=== PATIENT | female | born 1950 | race Caucasian/White ===

== ENCOUNTER → 2023-04-07 12:13 | Outpatient (REF) | payer MEDICARE, OTHER, SELFPAY | LOC: REG 12:13 | PROVIDERS: ATTENDING PHYSICIAN Emergency Medicine; FAMILY PHYSICIAN Family Medicine | DX: R19.7 Diarrhea, unspecified (principal) | CPT/HCPCS: 87045; 87046; 87324; 87328; 87329; 87427; 87449 ==

== ENCOUNTER 2023-04-28 06:09 | Emergency (ER) | payer MEDICARE, OTHER, SELFPAY ==
[2023-04-28 06:11] VITALS: BP 144/92
[2023-04-28 06:32] VITALS: BP 146/89
[2023-04-28 06:48] LABS: % Basophils 1.2 % (0-2); % Eosinophils 3.4 % (0-6); % Immature Granulocytes 0.2 % (0-0.5); % Lymphocytes 30.2 % (20.5-51.1); % Monocytes 11.1 % (1.7-9.3); % Neutrophils 53.9 % (42.2-75.2); Absolute Basophils 0.1 10^3/uL (0-0.2); Absolute Eosinophils 0.2 10^3/uL (0-0.7); Absolute Lymphocytes 1.5 10^3/uL (1.2-3.4); Absolute Monocytes 0.6 10^3/uL (0.1-0.6); Absolute Neutrophils 2.7 10^3/uL (1.4-6.5); Hematocrit 37.5 % (37.0-47.0); Hemoglobin 13.5 g/dL (12.0-16.0); Mean Corpuscular Hgb 31.7 pg (27.0-31.0); Mean Platelet Volume 9.4 fL (7.4-10.4); Nucleated Red Blood Cells % 0 %; Platelet Count 271 10^3/uL (130-400); Red Blood Cell Count 4.26 10^6/uL (4.20-5.40); Red Cell Dist. Width 12.4 % (11.5-14.5); White Blood Cell Count 4.9 10^3/uL (4.8-10.8)
[2023-04-28 06:53] VITALS: BMI 20.3
[2023-04-28 07:00] VITALS: BP 148/72
[2023-04-28 07:04] LABS: ALT (SGPT) 19 U/L (0-35); AST (SGOT) 27 U/L (14-36); Albumin 4.4 g/dl (3.5-5.0); Alkaline Phosphatase 66 U/L (38-126); Blood Urea Nitrogen 12 mg/dl (7-17); Calcium 10.3 mg/dl (8.4-10.2); Carbon Dioxide 27 mmol/L (22-30); Chloride 99 mmol/L (98-107); Estimated Creatinine Clearance 72 ml/min; Glucose 100 mg/dl (70-99); Potassium 3.7 mmol/L (3.5-5.1); Sodium 135 mmol/L (135-145); Total Bilirubin 0.6 mg/dl (0.2-1.3); Total Protein 7.1 g/dl (6.3-8.2); eGFR > 60.00
[2023-04-28 07:13] LABS: Troponin I < 0.012 ng/ml
--- NOTE | 2023-04-28 07:18 | ED.GENMED ---
History of Present Illness
General
Chief Complaint: Chest Pain
Source: patient
Exam Limitations: none
Time Seen by Provider: 04/28/23 06:17
Travel History
Have you had any contact with someone who has COVID-19?: No
Do you have any symptoms of coronavirus? Fever > 100 degrees, chills, cough, shortness of breath, sore throat, loss of taste or smell, muscle aches, or headache?: No
History of Present Illness
History of Present Illness:
72-year-old female who presents with discomfort to the area under the right breast radiate toward the back. Patient states started probably 2 days ago. She does admit she recent has been dealing with some diarrhea and GI issues. After eating 2
days ago and had some upset stomach. She had taken some [id number] medications. Patient states that she noticed the discomfort through yesterday and today decided to come in sting. She is unable to describe what may make it worse. She
states that she also lifted a [place] tree to take it downstairs and wondered if the pain was related. She states she has injured her rib in the past and normally hurts to breathe and this does not hurt to breathe. There is no pleuritic pain.
There is no pain with movement. She is unable to assess whether there is any worsening discomfort with eating but nothing that she is aware of. No fevers. No vomiting. No rash. No leg swelling. No hemoptysis. She walked 9 miles the other day
and had no pain.
Past History
Past History
ED Past Medical History: HTN and Other (Anxiety)
ED Past Surgical History: Gynecological
Social History
Tobacco: Former smoker
Alcohol: Occasional
Personal: Other ()
Living: with family
Employment: Employed
Phy Exam
Physical Exam
Physical Exam:
CONSTITUTIONAL Patient alert and oriented to person, place and time. Well-appearing. Vital signs reviewed.
HEAD atraumatic, normocephalic.
EYES eyelids normal to inspection, Pupils equally round and reactive to light, Extraocular muscles intact, Conjunctiva normal, Sclera normal.
NECK normal range of motion, Trachea midline, no jugular venous distention.
RESPIRATORY CHEST No respiratory distress noted, Chest expansion equal, Bilateral breath sounds clear. No chest wall tenderness. No rash
CARDIOVASCULAR regular rate and rhythm, Heart sounds normal.
ABDOMEN abdomen nontender, Bowel sounds normal. No distention.
BACK normal inspection, no obvious deformities
UPPER EXTREMITY range of motion normal, Motor strength normal, no cyanosis, no edema.
LOWER EXTREMITY range of motion normal, Motor strength normal, no cyanosis, no edema. No palpable cords.
NEURO Speech normal, No focal motor deficits, Byron coma scale 15, Memory normal, Cranial Nerves intact to screening exam.
SKIN skin warm, dry, and normal in color.
PSYCHIATRIC patient oriented to person place and time, Normal affect.
Scores
Heart Score for Chest Pain Patients
STEMI patient?: Not applicable
Course
Orders/Labs/Results
Orders:
Orders
04/28/23 06:14
Electrocardiogram (*1) Urgent
Reason for Study: Chest Pain
EKG- Treatment ONCE
04/28/23 06:30
CMP [Comprehensive Metabolic Panel] Urgent
Complete Blood Count/With Diff Urgent
Troponin I Urgent
04/28/23 07:17
CR Chest - 2 Views Urgent
Comment:
Reason For Exam: R cp
04/28/23 09:12
Troponin I Stat
Abnormal Lab Results
04/28/23
06:30
MCH 31.7 H pg
(27.0-31.0)
Monocytes % 11.1 H %
(1.7-9.3)
Glucose 100 H mg/dl
(70-99)
Calcium 10.3 H mg/dl
(8.4-10.2)
04/28/23 06:30
04/28/23 06:30
Vital Signs
Initial and Last Documented VS:
Initial Vital Signs
Temp Pulse Resp BP Pulse Ox
97.6 F 98 22 144/92 100
04/28/23 06:11 04/28/23 06:11 04/28/23 06:11 04/28/23 06:11 04/28/23 06:11
Last Documented Vital Signs
Temp Pulse Resp BP Pulse Ox
97.6 F 72 15 140/73 96
04/28/23 06:11 04/28/23 10:30 04/28/23 10:30 04/28/23 10:00 04/28/23 10:30
MDM/Problems Addressed
MDM/Problems Addressed:
Chest pain
*Radiology
Radiology exam reviewed: radiology read reviewed and all reviewed NAD by ED Provider
*Pulse Oximetry
Patient hypoxic: no
*EKG
Interpreted by ED Provider?: Yes
Interpretation: normal
Rate: normal
Rhythm: sinus
[place]: left axis deviation
QRS Pattern: right bundle branch block
Ischemia: non-specific ST changes
*Director [employer] Interpretation
Rate: normal
Interpretation: normal
Rhythm: sinus
*Critical Care Note
Total Time (30-74mins, 75-104mins- exclusive of procedures): Not Applicable
Data Reviewed
Review of Other/Old Records Reveals: Other (Echocardiogram reviewed from November 2020, ejection fraction 60 to 65% with history of right bundle branch block)
Source: patient
Further Testing Considered But Not Given:
considered DDIMER but no risks, no sx's/signs of pe/
Patient Management
Escalation/DeEscalation of care consider admission/obs:
Symptoms are mild and right-sided. Abdomen is benign. Could question GI etiology. LFTs and white count normal. No abdominal tenderness. Troponin x 2 negative. She appears well. Chest x-ray unremarkable. Outpatient PCP follow-up
ED Attending Note
-
Portions of this chart may have been created with voice recognition software.� Occasional wrong word or��sound alike� substitutions may have occurred due to the inherent limitations of voice recognition software.
Discharge Plan
Departure
Patient Disposition: Home (Routine Discharge)
Date of Disposition: 04/28/23
Time of Disposition: 10:26
Patient with high blood pressure during this ER visit?: Yes
Discharge Problem:
Atypical chest pain
Instructions: Chest Pain PCP Follow Up
Prescriptions:
No Action
multivitamin 1 EACH capsule
1 ea PO DAILY
docosahexaenoic acid-epa 1 CAP capsule
1 cap PO DAILY
CALCIUM
1 tab PO DAILY
Vitamin E
1 tab PO DAILY
lorazepam [Ativan] 0.5 MG tablet
0.5 mg PO PRN PRN (Reason: sleep)
Lisinopril
PO DAILY
escitalopram oxalate [Lexapro] 20 MG tablet
20 mg PO DAILY
Referrals:
Yoan Ty MD [Family Provider] -
Activity Restrictions/Additional Instructions:
Return immediately for worsening symptoms, difficulty breathing, pain with exertion or any other concerns. Please see your doctor in the next 2 days for follow-up and reevaluation.
Interventions
Interventions:
*Risk Screen - Suicide Last Done: 04/28/23 10:34
*General Assessment Last Done: 04/28/23 06:55
*Neglect/Abuse Screening Last Done: 04/28/23 06:55
ED- Fall Risk Assessment Last Done: 04/28/23 06:55
*ED COVID-19 Vaccine History Last Done: 04/28/23 06:55
*Nursing Disposition Last Done: 04/28/23 10:34
ED- Cardiac Assessment Last Done: 04/28/23 06:55
Discharge Date and Time
Discharge Date/Time: 04/28/23 10:35
[2023-04-28 09:12] VITALS: BP 163/73
[2023-04-28 09:56] LABS: Troponin I < 0.012 ng/ml
[2023-04-28 10:00] VITALS: BP 140/73
== END 2023-04-28 10:35 | disposition home or self-care (01) ==
LOC: EMR 06:09
PROVIDERS: EMERGENCY PHYSICIAN Emergency Medicine; FAMILY PHYSICIAN Family Medicine
DX: R07.89 Other chest pain (principal)
CPT/HCPCS: 99285; 71046; 80053; 84484; 85025; 93005

== ENCOUNTER → 2023-07-08 07:34 | Outpatient (REF) | payer MEDICARE, OTHER, SELFPAY | LOC: WDC 07:34 | PROVIDERS: ATTENDING PHYSICIAN Nurse Practitioner Family; FAMILY PHYSICIAN Family Medicine | DX: R92.2 Inconclusive mammogram (principal) | CPT/HCPCS: 76641 ==

== ENCOUNTER 2024-01-31 00:18 | Emergency (ER) | payer MEDICARE, OTHER, SELFPAY ==
[2024-01-31 00:23] VITALS: BP 160/92
--- NOTE | 2024-01-31 00:45 | ED.GENMED ---
History of Present Illness
General
Chief Complaint: Skin Surface Trauma
Source: patient
Exam Limitations: none
Time Seen by Provider: 01/31/24 00:26
Nursing documentation reviewed up to this point in time: agreed with
History of Present Illness
History of Present Illness:
73-year-old female with past medical history of hypertension presenting to the emergency department today with concerns of a cat scratch to her right forearm after her cat was falling off a countertop. There was significant bleeding at the house
but it was controlled with pressure. Denies any numbness or weakness.
Past History
Past History
ED Past Medical History: HTN and Other (Anxiety)
ED Past Surgical History: Gynecological
Social History
Tobacco: Former smoker
Alcohol: Occasional
Personal: Other ()
Living: with family
Employment: Employed
Review of Systems
Review of Systems
Allergies reviewed?: Yes
All Other Systems: ROS reviewed and negative except as documented in HPI and ROS
Phy Exam
Physical Exam
Physical Exam:
GENERAL: Alert , in no apparent distress
EYE: pupils equal and reactive
NECK: Supple, no significant adenopathy.
ENT: o/p clr, mmm.
CARDIAC: Regular rate and rhythm .
LUNGS: Clear breath sounds bilaterally, no acute respiratory distress, no wheezes/rales/rhonchi
ABDOMEN: Soft, without focal tenderness, no r/g, no cvat
NEUROLOGICAL: Alert and oriented, no focal neuro deficits
SKIN: Small 3 mm scratch to the right forearm no active bleeding normal distal pulses cap refill warm and dry, skin intact.
MUSCULOSKELETAL: No edema, well perfused.
PSYCH: Normal and appropriate interaction.
Course
Orders/Labs/Results
Orders:
Orders
01/31/24 00:44
Amoxicillin 875 mg/Clav 125 mg [Augmentin 875 mg/125 mg] 1 tablet PO NOW STA
Tetanus/Diphth/Acelpertussis [Adacel] 0.5 ml IM .ONCE ONE
Vital Signs
Initial and Last Documented VS:
Initial Vital Signs
Pulse Resp BP Pulse Ox
72 18 160/92 100
01/31/24 00:23 01/31/24 00:23 01/31/24 00:23 01/31/24 00:23
Last Documented Vital Signs
Pulse Resp BP Pulse Ox
72 18 160/92 100
01/31/24 00:23 01/31/24 00:23 01/31/24 00:23 01/31/24 00:23
MDM/Problems Addressed
MDM/Problems Addressed:
73-year-old female presenting to the emergency department after being scratched by her cat on her right forearm. There is initially bleeding but now controlled. Area was cleaned thoroughly bandaged patient was given antibiotics infection and given
a tetanus shot. Otherwise stable for outpatient management return precautions given.
*Critical Care Note
Total Time (30-74mins, 75-104mins- exclusive of procedures): Not Applicable
ED Attending Note
-
Portions of this chart may have been created with voice recognition software.� Occasional wrong word or��sound alike� substitutions may have occurred due to the inherent limitations of voice recognition software.
Discharge Plan
Departure
Patient Disposition: Home (Routine Discharge)
Date of Disposition: 01/31/24
Time of Disposition: 00:46
Patient with high blood pressure during this ER visit?: No
Condition: Good
Covid-19: Not Applicable
Discharge Problem:
Cat scratch
Instructions: Wound Care (DC)
Prescriptions:
New
amoxicillin-pot clavulanate 875-125 mg tablet
1 tab PO BID 3 Days Qty: 6 0RF
No Action
multivitamin 1 EACH capsule
1 ea PO DAILY
docosahexaenoic acid-epa 1 CAP capsule
1 cap PO DAILY
CALCIUM
1 tab PO DAILY
Vitamin E
1 tab PO DAILY
lorazepam [Ativan] 0.5 MG tablet
0.5 mg PO PRN PRN (Reason: sleep)
Lisinopril
PO DAILY
escitalopram oxalate [Lexapro] 20 MG tablet
20 mg PO DAILY
Referrals:
UNKNOWN - PT NOT,INTERVIEWE [Family Provider] -
Activity Restrictions/Additional Instructions:
You came to the emergency department today with concerns of a cat scratch your right forearm. Please keep this area clean covered and take the Augmentin twice daily for the next 3 days. Return for any worsening, new or concerning symptoms.
Interventions
Interventions:
*ED COVID-19 Vaccine History Last Done: 01/31/24 00:20
Discharge Date and Time
Print Language: ESTONIAN
[2024-01-31] MEDS: AUGMENTIN 875 MG/125 MG 1 TABLET PO (01:10)
[2024-01-31 01:12] VITALS: BP 152/80
[2024-01-31] MEDS: ADACEL 0.5 ML IM (01:14)
== END 2024-01-31 01:21 | disposition home or self-care (01) ==
LOC: EMR 00:18
PROVIDERS: EMERGENCY PHYSICIAN Emergency Medicine
DX: S51.801A Unspecified open wound of right forearm, initial encounter (principal); W55.03XA Scratched by cat, initial encounter; Z23 Encounter for immunization; I10 Essential (primary) hypertension; F41.9 Anxiety disorder, unspecified; Z87.891 Personal history of nicotine dependence
CPT/HCPCS: 99282; 90471; 90715

== ENCOUNTER → 2024-03-01 07:50 | Outpatient (REF) | payer MEDICARE, OTHER, SELFPAY | LOC: WDC 07:50 | PROVIDERS: ATTENDING PHYSICIAN Physician Assistant | DX: Z12.31 Encounter for screening mammogram for malignant neoplasm of breast (principal) | CPT/HCPCS: 77063; 77067 ==

== ENCOUNTER → 2024-06-18 13:44 | Outpatient (REF) | payer MEDICARE, OTHER, SELFPAY | LOC: WDC 13:44 | PROVIDERS: ATTENDING PHYSICIAN Physician Assistant | DX: R92.343 Mammographic extreme density, bilateral breasts (principal) | CPT/HCPCS: 76641 ==

== ENCOUNTER → 2024-11-08 09:16 | Outpatient (REF) | payer MEDICARE, OTHER, SELFPAY | LOC: WDC 09:16 | PROVIDERS: ATTENDING PHYSICIAN Physician Assistant | DX: N63.11 Unspecified lump in the right breast, upper outer quadrant (principal); R92.343 Mammographic extreme density, bilateral breasts | CPT/HCPCS: 76642; 77061; 77065 ==

== ENCOUNTER → 2025-01-21 10:35 | Outpatient (REF) | payer MEDICARE, OTHER, SELFPAY | LOC: HWRAD 10:35 | PROVIDERS: ATTENDING PHYSICIAN Internal Medicine Cardiovascular Disease; FAMILY PHYSICIAN Physician Assistant | DX: I10 Essential (primary) hypertension (principal); I45.10 Unspecified right bundle-branch block; I34.0 Nonrheumatic mitral (valve) insufficiency | CPT/HCPCS: 75571 ==